=== PATIENT | male | born 2000 | race Caucasian/White ===

== ENCOUNTER 2021-09-28 05:57 | Emergency (ER) | payer MEDICAID, OTHER ==
[2021-09-28] MEDS ORDERED: Rocephin 1000 MG INJ IM ONE (06:11)
[2021-09-28] MEDS ORDERED: TORAdol 30 mg Injection IM ONE (06:12)
[2021-09-28] MEDS ORDERED: Rocephin 1000 MG INJ ONE (06:13)
[2021-09-28] MEDS ORDERED: TORAdol 30 mg Injection ONE (06:13)
[2021-09-28] MEDS ORDERED: XYLOCAINE 1% HCL 20 ML MDV ONE (06:15)
--- NOTE | 2021-09-28 06:52 | ERPHSYRPT ---
- History of Present Illness Time Seen by Provider: 09/28/21 06:05 Source: patient Patient Subjective Stated Complaint: C/O right sided jaw/teeth pain. Patient states he finished a one week series of aumgentin early this morning for this same thing. Triage Nursing Assessment: Patient brought into the ED by an ambulance. He is alert and oriented and answering questions appropriately. He is displaying s/s of pain; rocking in bed, grimacing, inability to sit still. Right upper back teeth with carries and gums are very swollen. No SOB. Patient is able to swallow. Physician History: This is a 21-year-old white male patient who was brought in by ambulance because of dental pain. Patient just completed a round of Augmentin. He has fractured, painful right upper molars. He is on Suboxone. Timing/Duration: gradual onset Severity: moderate ENT Location: dental Prearrival Treatment: over the counter meds, prescription meds Associated Symptoms: tooth pain Allergies/Adverse Reactions: No Known Drug Allergies Allergy (Verified 09/28/21 05:59) Home Medications: Buprenorphine HCl/Naloxone HCl [Suboxone 8 mg-2 mg Sl Film] 1 film PO TID 09/28/21 [History] Hx Tetanus, Diphtheria Vaccination/Date Given: Yes Hx Influenza Vaccination/Date Given: No Hx Pneumococcal Vaccination/Date Given: No Immunizations Up to Date: Yes Travel Risk - International Travel Have you traveled outside of the country in past 3 weeks: No - Coronavirus Screening Are you exhibiting any of the following symptoms?: No Close contact with a COVID-19 positive Pt in past 14-21 Days: No - Vaccine Status Have you recieved a Covid-19 vaccination: No - Review of Systems Constitutional: No Symptoms Eyes: No Symptoms Ears, Nose, & Throat: Other (Right upper molar dental pain) Respiratory: No Symptoms Cardiac: No Symptoms Abdominal/Gastrointestinal: No Symptoms Genitourinary Symptoms: No Symptoms Musculoskeletal: No Symptoms Skin: No Symptoms Neurological: No Symptoms Psychological: No Symptoms Endocrine: No Symptoms Hematologic/Lymphatic: No Symptoms Immunological/Allergic: No Symptoms All Other Systems: Reviewed and Negative - Past Medical History Pertinent Past Medical History: Yes Neurological History: No Pertinent History ENT History: No Pertinent History Cardiac History: No Pertinent History Respiratory History: No Pertinent History Endocrine Medical History: No Pertinent History Musculoskeletal History: No Pertinent History GI Medical History: No Pertinent History History: No Pertinent History Psycho-Social History: Anxiety, Attention Deficit Disorder, Depression Male Reproductive Disorders: No Pertinent History - Past Surgical History Past Surgical History: No - Social History Smoking Status: Current every day smoker How long have you smoked: 10 years Exposure to second hand smoke: No Drug Use: none Patient Lives Alone: No - Nursing Vital Signs Nursing Vital Signs: Initial Vital Signs Temperature 98.2 F 09/28/21 06:00 Pulse Rate 77 09/28/21 06:00 Respiratory Rate 18 09/28/21 06:00 Blood Pressure 130/82 09/28/21 06:00 O2 Sat by Pulse Oximetry 99 09/28/21 06:00 Pain Scale Pain Intensity 10 - Physical Exam General Appearance: no apparent distress, alert, anxiety Eye Exam: bilateral eye: normal inspection, PERRL Ear Exam: bilateral ear: auricle normal Nasal Exam: normal inspection Throat Exam: dental tenderness (Right upper molars with gingival swelling and tenderness as well. 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, normal mood/affect, nml cerebellar function, nml station & gait, sensation nml Skin Exam: normal color, warm SpO2 Interpretation: normal SpO2: 99 O2 Delivery: Room Air - Course Nursing assessment & vital signs reviewed: Yes Ordered Tests: Medication Summary Discontinued Medications Generic Name Dose Route Start Last Admin Trade Name Vern PRN Reason Stop Dose Admin Ceftriaxone Sodium 1,000 mg 09/28/21 06:11 09/28/21 06:24 Ceftriaxone Sodium 1000 Mg Inj Vial IM 09/28/21 06:12 1,000 mg STAT ONE Administration Ceftriaxone Sodium Confirm 09/28/21 06:13 Ceftriaxone Sodium 1000 Mg Inj Vial Administered 09/28/21 06:14 Dose 1,000 mg .ROUTE .STK-MED ONE Ketorolac Tromethamine 60 mg 09/28/21 06:12 09/28/21 06:25 Ketorolac Tromethamine 30 Mg/Ml Inj IM 09/28/21 06:13 60 mg STAT ONE Administration Ketorolac Tromethamine Confirm 09/28/21 06:13 Ketorolac Tromethamine 30 Mg/Ml Inj Administered 09/28/21 06:14 Dose 60 mg .ROUTE .STK-MED ONE Lidocaine HCl Confirm 09/28/21 06:15 Lidocaine Hcl 1% 20 Ml Mdv 20 Ml Ml Administered 09/28/21 06:16 Dose 3 ml .ROUTE .STK-MED ONE - Progress Progress: improved, pain not gone completely Progress Note: 09/28/21 06:52 Patient states that after the Toradol injection his pain has improved significantly. Is not completely resolved but is tolerable. Counseled pt/family regarding: diagnosis, need for follow-up - Departure Departure Disposition: Home Clinical Impression: Pain, dental, Gingivitis Condition: Stable Critical Care Time: No Referrals: TAWANNA ERICKSON NP [Primary Care Provider] - Follow up/PCP as directed Additional Instructions: Use Tylenol and ibuprofen for pain control. Take your antibiotics as prescribed. Locate a urgent care for dentistry. Prescriptions: Clindamycin HCl 150 mg [Cleocin 150 mg Capsule] 2 cap PO QID #56 cap
[2021-09-28 07:27] VITALS: BP 123/80; PULSE 78; O2SAT 96
== END 2021-09-28 07:27 | disposition home or self-care (01) ==
LOC: ED 05:57
DX: K05.10 Chronic gingivitis, plaque induced (principal); Z72.0 Tobacco use; K08.89 Other specified disorders of teeth and supporting structures; Z79.891 Long term (current) use of opiate analgesic
CPT/HCPCS: 96372; 99284; J0696; J1885